=== PATIENT | female | born 1935 | race Two or more races ===

== ENCOUNTER 2022-11-28 22:22 | Emergency (ER) | payer BC, OTHER ==
[~2022-11-28] VITALS: Ht 160 cm; Wt 68.0 kg
--- NOTE | 2022-11-28 22:33 | NUR ---
[phone].
--- NOTE | 2022-11-28 22:42 | NUR ---
[id number] FROM THE [facility], C/O FEELING SICK, WEAK, [place], PT TO BED 12, PT AAOX3, NOT IN ACUTE DISTRESS, NO SOB. PENDING ER PROVIDER SHERRY
[2022-11-28 23:29] LABS: BASOPHILS % (AUTO) 0.4 % (0.0-2.0); EOSINOPHILS % (AUTO) 1.7 % (0.0-6.0); HEMATOCRIT 34 % (33-45); HEMOGLOBIN 10.9 g/dL (11.5-14.8); LYMPHOCYTES # (AUTO) 1.7 K/uL (0.8-4.8); LYMPHOCYTES % (AUTO) 19.5 % (20.0-44.0); MEAN CORPUSCULAR HGB CONC 33 g/dl (31.0-36.0); MEAN CORPUSCULAR VOLUME 87 fL (82-100); MONOCYTES # (AUTO) 1.2 K/uL (0.1-1.30); MONOCYTES % (AUTO) 13.5 % (2.0-12.0); NEUTROPHILS # (AUTO) 5.8 K/uL (1.8-8.9); NEUTROPHILS % (AUTO) 64.9 % (43.0-81.0); PLATELET COUNT (AUTO) 372 K/uL (150-450); RED BLOOD CELL COUNT(AUTO) 3.84 MIL/uL (4.0-5.2); WHITE BLOOD COUNT (AUTO) 8.9 K/uL (4.3-11.0)
[2022-11-28 23:46] LABS: CALCIUM, SERUM 8.9 mg/dL (8.5-10.1); CARBON DIOXIDE 28 mmol/L (21-32); CHLORIDE 103 mmol/L (98-107); CREATININE 0.8 mg/dL (0.6-1.3); GLUCOSE 90 mg/dL (74-106); POTASSIUM 3.7 mmol/L (3.5-5.1); SODIUM SERUM 136 mmol/L (136-145); UREA NITROGEN, BLOOD 12 mg/dL (7-18)
--- NOTE | 2022-11-28 23:46 | NUR ---
urine collected sent to lab
[2022-11-29 00:09] LABS: BILIRUBIN,URINE NEGATIVE (NEGATIVE); COLOR,URINE YELLOW (YELLOW); LEUKOCYTE ESTERASE ,URINE NEGATIVE (NEGATIVE); NITRITE, URINE NEGATIVE (NEGATIVE); PROTEIN,URINE NEGATIVE (NEGATIVE); UGLUCOSE NEGATIVE (NEGATIVE); UROBILINOGEN,URINE 0.2 EU/dL (0.2)
--- NOTE | 2022-11-29 03:32 | NUR ---
apa eta: 90-120 min
--- NOTE | 2022-11-29 03:42 | NUR ---
called [facility] for report, no staff available for report. spoke to staff gita, notified re: pt transport back to facility
--- NOTE | 2022-11-29 04:03 | NUR ---
Pt transported back to [place] via [facility] ambulance. left in stable condition
[2022-11-29 04:08] VITALS: BP 132/80
== END 2022-11-29 04:09 ==
LOC: ER 22:25
DX: R42 Dizziness and giddiness (principal); I10 Essential (primary) hypertension; E11.9 Type 2 diabetes mellitus without complications; Z86.73 Personal history of transient ischemic attack (TIA), and cerebral infarction without residual deficits; Z20.822 Contact with and (suspected) exposure to COVID-19
CPT/HCPCS: 99285; 71045; 93005; 85025; 80048; 81003; 36415 ×2; 84484 ×2; 87426; C9803; A6403